=== PATIENT | male | born 1985 | race Caucasian/White ===

== ENCOUNTER 2020-11-20 06:31 | Inpatient (IN) | payer OTHER ==
[2020-11-20] MEDS ORDERED: ACETAMINOPHEN 1000 MG/100 ML VIAL (NON FORMULARY) IVPB ONE (07:15)
[2020-11-20] MEDS ORDERED: FAMOTIDINE 20 MG/50 ML IVPB 20 MG/50 ML MG IVPB ONE ×2 (07:15→07:24)
[2020-11-20] MEDS ORDERED: LACTATED RINGERS SOLUTION 1,000 ML/1,000 ML INFUS.BAG IV STA ×2 (07:15→09:07)
[2020-11-20] MEDS ORDERED: ONDANSETRON 4 MG/2 ML VIAL IVPUSH ONE (07:18)
[2020-11-20] MEDS ORDERED: ACETAMINOPHEN INJECTION 100 ML IVPB ONE (07:24)
[2020-11-20] MEDS ORDERED: SODIUM CHLORIDE 0.9% 500 ML INFUS.BAG IV ONE (07:28)
[2020-11-20] MEDS ORDERED: ONDANSETRON 4 MG/2 ML VIAL ONE ×2 (07:31→14:44)
[2020-11-20 07:58] LABS: HEMATOCRIT 47.4 % (35.4-49); HEMOGLOBIN 15.6 GM/dl (11.7-16.9); MCH 27.6 pg (25.7-33.7); MEAN CELL VOLUME 83.6 fl (80-96); MEAN PLT VOLUME 9.9 fl (7.5-11.1); PLATELET COUNT 221 K/MM3 (134-434); RBC 5.67 M/mm3 (4.00-5.60); RDW 13.6 % (11.9-15.9); WHITE BLOOD COUNT 14.7 K/mm3 (4.0-10.8)
[2020-11-20 08:06] LABS: ALBUMIN 4.8 g/dl (3.4-5.0); CALCIUM 9.9 mg/dl (8.5-10); MAGNESIUM 1.9 mg/dL (1.8-2.4); TOT PROT 8.1 g/dl (6.4-8.2)
[2020-11-20 08:12] LABS: ACTIVATED PTT 25.3 SECONDS (25.2-36.5)
[2020-11-20] MEDS ORDERED: morphine CARPU-JECT 4 MG/1 ML DISP.SYRIN IVPUSH ONE (08:14)
[2020-11-20 08:17] LABS: INR 1.11 (0.82-1.09); PROTHROMBIN TIME (PATIENT) 12.3 SEC (10.2-13.0)
[2020-11-20] MEDS ORDERED: morphine SULFATE 4 MG/ML VIAL ONE (08:18)
[2020-11-20 09:36] LABS: PLATELET ESTIMATE ADEQUATE
[2020-11-20] MEDS ORDERED: CEFAZOLIN 2 GM in DEXTROSE 5%-WATER - 50 ML IVPB ONE (09:58)
[2020-11-20] MEDS ORDERED: ceFAZolin SODIUM 1 GM VIAL ONE (10:05)
[2020-11-20 13:32] VITALS: BMI 27.8
[2020-11-20] MEDS ORDERED: fentaNYL CITRATE 250 MCG/5 ML VIAL ONE ×2 (13:49→16:01)
[2020-11-20] MEDS ORDERED: MIDAZOLAM HCL 2 MG/2 ML SINGLE DOSE VIAL ONE (13:49)
[2020-11-20] MEDS ORDERED: ROCURONIUM BROMIDE 50 MG/5 ML SYRINGE ONE ×2 (13:49→15:41)
[2020-11-20] MEDS ORDERED: PROPOFOL 20 ML ONE ×3 (13:49→14:11)
[2020-11-20] MEDS ORDERED: LIDOCAINE HCL/PF 2% SDV 5ML VIAL ONE (13:49)
[2020-11-20] MEDS ORDERED: DESFLURANE GAS 240 ML BOTTLE IH ONE (14:27)
[2020-11-20] MEDS ORDERED: DEXAMETHASONE SOD PHOSPHATE 4 MG/1 ML VIAL ONE (14:44)
[2020-11-20] MEDS ORDERED: BUPIVACAINE HCL 50 ML ONE (15:57)
[2020-11-20] MEDS ORDERED: GLYCOPYRROLATE 0.2 MG/1 ML VIAL ONE ×3 (16:09)
[2020-11-20] MEDS ORDERED: NEOSTIGMINE METHYLSULFATE 0.5 MG/1 ML - 10 ML MDV ONE (16:09)
[2020-11-20] MEDS ORDERED: FLUMAZENIL 0.5 MG/5 ML VIAL ONE (16:30)
[2020-11-20] MEDS ORDERED: oxyCODONE HCL 5 MG TABLET PO PRN (16:55)
[2020-11-20] MEDS ORDERED: PIPERACILLIN/TAZOBACTAM 3.375 GM VIAL IVPB ONE ×2 (17:01→17:30)
[2020-11-20] MEDS ORDERED: DEXTROSE 5%-WATER - 50 ML IVPB ONE (17:01)
[2020-11-20] MEDS ORDERED: LACTATED RINGERS SOLUTION 1,000 ML IV SCH (17:15)
[2020-11-20] MEDS: PIPERACILLIN/TAZOB 3.375 GM 3.375 GM in DEXTROSE 5%-WATER - 50 ML IVPB SCH (17:37)
[2020-11-20] MEDS: LACTATED RINGERS SOLUTION 1,000 ML IV SCH (18:20)
[2020-11-20] MEDS ORDERED: ACETAMINOPHEN 1000 MG/100 ML VIAL (NON FORMULARY) IVPB PRN (23:00)
[2020-11-21] MEDS ORDERED: DEXTROSE 5%-WATER - 50 ML IVPB ONE ×3 (00:19→18:01)
[2020-11-21] MEDS ORDERED: PIPERACILLIN/TAZOBACTAM 3.375 GM VIAL IVPB ONE ×3 (00:19→18:00)
[2020-11-21] MEDS: LACTATED RINGERS SOLUTION 1,000 ML IV SCH ×2 (00:46→10:14)
[2020-11-21] MEDS: PIPERACILLIN/TAZOB 3.375 GM 3.375 GM in DEXTROSE 5%-WATER - 50 ML IVPB SCH ×5 (01:11→18:21)
[2020-11-21] MEDS: oxyCODONE HCL 5 MG TABLET PO PRN ×2 (01:26→12:21)
[2020-11-21 09:34] LABS: HEMATOCRIT 41.5 % (35.4-49); HEMOGLOBIN 13.6 GM/dL (11.7-16.9); MCHC 32.8 g/dl (32.0-35.9); MEAN CELL VOLUME 85.3 fl (80-96); PLATELET COUNT 188 K/MM3 (134-434); RBC 4.86 M/mm3 (4.00-5.60); WHITE BLOOD COUNT 12.3 K/mm3 (4.0-10.0)
[2020-11-21 10:00] LABS: CALCIUM 8.8 mg/dL (8.5-10.1)
[2020-11-21 10:01] LABS: BLOOD UREA NITROGEN 17.1 mg/dL (7-18); MAGNESIUM 2.2 mg/dL (1.8-2.4)
[2020-11-21 10:04] LABS: CREATININE 1.1 mg/dL (0.55-1.3); PHOSPHOROUS 3.7 mg/dL (2.5-4.9)
[2020-11-21 10:05] LABS: CHOLESTEROL 166 mg/dL (50-200)
[2020-11-21 10:06] LABS: BILIRUBIN,TOTAL 1.4 mg/dL (0.2-1); TOT PROT 6.2 g/dl (6.4-8.2); TRIGLYCERIDES 52 mg/dL (0-150)
[2020-11-21 10:07] LABS: LDL CHOLESTEROL (ONLY SJRH) 92 mg/dL (5-100)
[2020-11-21 10:09] LABS: ALBUMIN 3.3 g/dl (3.4-5.0)
[2020-11-21 10:10] LABS: HDL CHOLESTEROL 52 mg/dL (40-60)
[2020-11-21] MEDS ORDERED: SODIUM CHLORIDE 1,000 ML IV SCH (14:00)
[2020-11-21 18:01] LABS: ALBUMIN 3.5 g/dl (3.4-5.0)
[2020-11-21 18:04] LABS: BILIRUBIN,DIRECT 0.4 mg/dL (0.0-0.2)
[2020-11-21 18:06] LABS: BILIRUBIN,TOTAL 1.4 mg/dL (0.2-1); TOT PROT 6.7 g/dl (6.4-8.2)
[2020-11-22] MEDS ORDERED: PIPERACILLIN/TAZOBACTAM 3.375 GM VIAL IVPB ONE ×3 (01:03→17:26)
[2020-11-22] MEDS ORDERED: DEXTROSE 5%-WATER - 50 ML IVPB ONE ×3 (01:04→17:26)
[2020-11-22] MEDS: PIPERACILLIN/TAZOB 3.375 GM 3.375 GM in DEXTROSE 5%-WATER - 50 ML IVPB SCH ×3 (01:14→17:35)
[2020-11-22] MEDS: oxyCODONE HCL 5 MG TABLET PO PRN (04:45)
[2020-11-22 08:42] LABS: BASO % 0.4 % (0-2.0); EOS % 1.1 % (0-4.5); HEMATOCRIT 39.8 % (35.4-49); HEMOGLOBIN 13.5 GM/dL (11.7-16.9); LYMPH % 16.9 % (8-40); MCH 28.4 pg (25.7-33.7); MCHC 33.9 g/dl (32.0-35.9); MEAN CELL VOLUME 83.7 fl (80-96); MEAN PLT VOLUME 9.2 fl (7.5-11.1); MONO % 9.7 % (3.8-10.2); NEUT % 71.9 % (42.8-82.8); PLATELET COUNT 169 K/MM3 (134-434); RBC 4.76 M/mm3 (4.00-5.60); RDW 14.6 % (11.9-15.9); WHITE BLOOD COUNT 11.1 K/mm3 (4.0-10.0)
[2020-11-22 09:21] LABS: CALCIUM 7.9 mg/dL (8.5-10.1)
[2020-11-22 09:22] LABS: ALBUMIN 3.2 g/dl (3.4-5.0); BLOOD UREA NITROGEN 15.4 mg/dL (7-18)
[2020-11-22 09:25] LABS: CREATININE 1.1 mg/dL (0.55-1.3)
[2020-11-22 09:26] LABS: BILIRUBIN,TOTAL 1.2 mg/dL (0.2-1)
[2020-11-22] MEDS ORDERED: ACETAMINOPHEN 500 MG TABLET (FP) PO PRN (10:58)
[2020-11-23] MEDS ORDERED: PIPERACILLIN/TAZOBACTAM 3.375 GM VIAL IVPB ONE ×2 (00:17→08:51)
[2020-11-23] MEDS ORDERED: DEXTROSE 5%-WATER - 50 ML IVPB ONE ×2 (00:17→08:51)
[2020-11-23] MEDS: PIPERACILLIN/TAZOB 3.375 GM 3.375 GM in DEXTROSE 5%-WATER - 50 ML IVPB SCH ×2 (01:47→09:19)
[2020-11-23 11:14] LABS: BASO % 0.4 % (0-2.0); EOS % 1.8 % (0-4.5); HEMATOCRIT 42.9 % (35.4-49); HEMOGLOBIN 14.1 GM/dL (11.7-16.9); LYMPH % 19.7 % (8-40); MCH 28.1 pg (25.7-33.7); MONO % 8.5 % (3.8-10.2); NEUT % 69.6 % (42.8-82.8); RBC 5.04 M/mm3 (4.00-5.60); RDW 14.2 % (11.9-15.9); WHITE BLOOD COUNT 10.1 K/mm3 (4.0-10.0)
[2020-11-23 11:29] LABS: ALBUMIN 3.3 g/dl (3.4-5.0); BLOOD UREA NITROGEN 16.1 mg/dL (7-18); CALCIUM 8.8 mg/dL (8.5-10.1)
[2020-11-23 11:32] LABS: BILIRUBIN,DIRECT 0.3 mg/dL (0.0-0.2); MAGNESIUM 2.6 mg/dL (1.8-2.4)
[2020-11-23 11:33] LABS: CREATININE 1.1 mg/dL (0.55-1.3)
[2020-11-23 11:34] LABS: BILIRUBIN,TOTAL 1.2 mg/dL (0.2-1); TOT PROT 6.3 g/dl (6.4-8.2)
[2020-11-23 11:35] LABS: PHOSPHOROUS 3.4 mg/dL (2.5-4.9)
[2020-11-23 11:51] LABS: PLATELET COUNT 185 K/MM3 (134-434)
[2020-11-23 11:52] LABS: MEAN PLT VOLUME 9.5 fl (7.5-11.1)
[2020-11-23 15:39] VITALS: BP 136/93; PULSE 85; TEMP 98.9
== END 2020-11-23 15:41 | disposition home or self-care (01) | DRG 419 ==
LOC: FER 06:31 → SUPCPDRO 06:31 → J5S 12:59
PROVIDERS: ADMIT Internal Medicine; ATTEND Internal Medicine
PROC: 0FT44ZZ Resection of Gallbladder, Percutaneous Endoscopic Approach (ICD-10-PCS; principal; 2020-11-20 13:00)
DX: K80.00 Calculus of gallbladder with acute cholecystitis without obstruction (principal); R74.01 Elevation of levels of liver transaminase levels; R10.11 Right upper quadrant pain; E66.9 Obesity, unspecified; Z68.27 Body mass index [BMI] 27.0-27.9, adult; D72.829 Elevated white blood cell count, unspecified
CPT/HCPCS: 36415; 76705-TC; 80053; 80061; 80076; 83036; 83690; 83721; 83735; 84100; 85025; 85027; 85610; 85730; 88304-TC; 93005; 94760; 99285-25; C9803; J0131; U0003; U0005